=== PATIENT | male | born 1970 | race Two or more races ===

== ENCOUNTER 2017-08-26 06:40 | Emergency (ER) | payer BC ==
[2017-08-26] MEDS ORDERED: Aspirin 81 MG Tab.Chew PO ONE (06:42)
[2017-08-26] MEDS ORDERED: Sodium Chloride 0.9% 500 ML IV SCH (06:45)
[2017-08-26 07:18] LABS: CHLORIDE,CL 103 mmol/L (98-107); SODIUM,NA 139 mmol/L (136-148)
--- NOTE | 2017-08-26 07:24 | EDM.PDOC ---
ED HPI GENERAL MEDICAL PROBLEM - General Chief Complaint: Chest Pain Stated Complaint: CHEST PAIN Time Seen by Provider: 08/26/17 07:10 - History of Present Illness INITIAL COMMENTS - FREE TEXT/NARRATIVE: HISTORY AND PHYSICAL: History of present illness: Patient's 46-year-old male sensory concern of chest pain started 3 days prior after he sneezed he had discomfort that was worse with movement this lasts about a day he states it resolved and then returned it is worse with palpation and movement there is no clear associated shortness of breath palpitations or diaphoresis. Review of systems: As per history of present illness and below otherwise all systems reviewed and negative. Past medical history: As per history of present illness and as reviewed below otherwise noncontributory. Surgical history: As per history of present illness and as reviewed below otherwise noncontributory. Social history: No reported history of drug or alcohol abuse. Family history: As per history of present illness and as reviewed below otherwise noncontributory. Physical exam: HEENT: Atraumatic, normocephalic, pupils reactive, negative for conjunctival pallor or scleral icterus, mucous membranes moist, throat clear, neck supple, nontender, trachea midline. Lungs: Clear to auscultation, breath sounds equal bilaterally, chest nontender. Heart: S1S2, regular, negative for clicks, rubs, or JVD. Abdomen: Soft, nondistended, nontender. Negative for masses or hepatosplenomegaly. Negative for costovertebral tenderness. Pelvis: Stable nontender. Genitourinary: Deferred. Rectal: Deferred. Extremities: Atraumatic, negative for cords or calf pain. Neurovascular unremarkable. Neuro: Awake, alert, oriented. Cranial nerves II through XII unremarkable. Cerebellum unremarkable. Motor and sensory unremarkable throughout. Exam nonfocal. Diagnostics: CBC CMP troponin PT/INR chest x-ray EKG Therapeutics: IV O2 monitor patient taken aspirin prior to arrival Impression: #1 chest pain probable muscle skeletal etiology Definitive disposition and diagnosis as appropriate pending reevaluation and review of above. Left Anterior Chest Pain Score (Numeric/FACES): 4 - Related Data Allergies Allergy/AdvReac Type Severity Reaction Status Date / Time No Known Allergies Allergy Verified 08/26/17 06:43 Home Meds: Home Meds Aspirin 325 mg PO DAILY 08/26/17 [History] Carvedilol [Coreg CR] 40 mg PO DAILY 08/26/17 [History] Past Medical History HEENT History: Reports: None Cardiovascular History: Reports: Heart Murmur, High Cholesterol, Hypertension Respiratory History: Reports: None Gastrointestinal History: Reports: None Genitourinary History: Reports: None Musculoskeletal History: Reports: None Neurological History: Reports: None Psychiatric History: Reports: None Endocrine/Metabolic History: Reports: None Hematologic History: Reports: None Immunologic History: Reports: None Oncologic (Cancer) History: Reports: None Dermatologic History: Reports: None - Infectious Disease History Infectious Disease History: Reports: Chicken Pox - Past Surgical History Head Surgeries/Procedures: Reports: None HEENT Surgical History: Reports: None Respiratory Surgical History: Reports: None GI Surgical History: Reports: None Endocrine Surgical History: Reports: None Neurological Surgical History: Reports: None Musculoskeletal Surgical History: Reports: None Oncologic Surgical History: Reports: None Social & Family History - Family History Cardiac: Reports: MS Neurological: Reports: CVA - Tobacco Use Smoking Status *Q: Current Some Day Smoker Years of Tobacco use: 2 Packs/Tins Daily: 0.1 - Caffeine Use Caffeine Use: Reports: Coffee - Recreational Drug Use Recreational Drug Use: No ED ROS GENERAL - Review of Systems Review Of Systems: ROS reveals no pertinent complaints other than HPI. ED EXAM, GENERAL - Physical Exam Exam: See Below (See dictation) Course - Vital Signs Text/Narrative:: Patient's emergency department course has been unremarkable I discussed with an admission for observation patient declines will be given a referral for outpatient follow-up and agrees to such she'll return as needed as discussed Last Recorded V/S: Last Vital Signs Temp 37.1 C 08/26/17 06:43 Pulse 65 08/26/17 06:43 Resp 18 08/26/17 06:43 BP 166/98 H 08/26/17 06:43 Pulse Ox 100 08/26/17 06:43 - Orders/Labs/Meds Orders: Active Orders 24 hr Category Date Time Status EKG Documentation Completion [RC] STAT Care 08/26/17 06:42 Active Chest 1V Frontal [CR] Stat Exams 08/26/17 06:42 Taken COMPREHENSIVE METABOLIC PN,CMP [CHEM] Stat Lab 08/26/17 06:45 Received LIPASE [CHEM] Stat Lab 08/26/17 06:45 Received TROPONIN I [CHEM] Stat Lab 08/26/17 06:45 Received UA W/MICROSCOPIC [URIN] Stat Lab 08/26/17 06:42 Ordered Sodium Chloride 0.9% [Normal Saline] 500 ml Med 08/26/17 06:45 Active IV STAT Medication Orders Sodium Chloride (Normal Saline) 500 mls @ 999 mls/hr IV STAT NOE Last Admin: 08/26/17 06:50 Dose: 999 mls/hr Labs: Laboratory Tests 08/26/17 Range/Units 06:45 WBC 5.73 (4.0-11.0) K/uL RBC 4.84 (4.50-5.90) M/uL Hgb 14.5 (13.0-17.0) g/dL Hct 42.6 (38.0-50.0) % MCV 88.0 (80.0-98.0) fL MCH 30.0 (27.0-32.0) pg MCHC 34.0 (31.0-37.0) g/dL RDW Std Deviation 44.0 (28.0-62.0) fl RDW Coeff of Shaun 14 (11.0-15.0) % Plt Count 205 (150-400) K/uL MPV 10.10 (7.40-12.00) fL Neut % (Auto) 49.4 (48.0-80.0) % Lymph % (Auto) 38.4 (16.0-40.0) % [place] % (Auto) 8.4 (0.0-15.0) % Eos % (Auto) 3.5 (0.0-7.0) % Baso % (Auto) 0.3 (0.0-1.5) % Neut # (Auto) 2.8 (1.4-5.7) K/uL Lymph # (Auto) 2.2 (0.6-2.4) K/uL [place] # (Auto) 0.5 (0.0-0.8) K/uL Eos # (Auto) 0.2 (0.0-0.7) K/uL Baso # (Auto) 0.0 (0.0-0.1) K/uL Nucleated RBC % 0.0 /100WBC Nucleated RBCs # 0 K/uL Meds: Medications Generic Name Dose Route Start Last Admin Trade Name Freq PRN Reason Stop Dose Admin Sodium Chloride 500 mls @ 999 mls/hr 08/26/17 06:45 08/26/17 06:50 Normal Saline IV 999 mls/hr STAT NOE Administration Discontinued Medications Generic Name Dose Route Start Last Admin Trade Name Martha GOMEZ Reason Stop Dose Admin Aspirin 324 mg 08/26/17 06:42 08/26/17 06:50 Aspirin PO 08/26/17 06:43 324 mg ONETIME ONE Administration Departure - Departure Time of Disposition: 07:49 Disposition: Home, Self-Care 01 Condition: Good Clinical Impression: Atypical chest pain - Discharge Information Referrals: PCP,None [Primary Care Provider] - Additional Instructions: The following information is given to patients seen in the emergency department who are being discharged to home. This information is to outline your options for follow-up care. We provide all patients seen in our emergency department with a follow-up referral. The need for follow-up, as well as the timing and circumstances, are variable depending upon the specifics of your emergency department visit. If you don't have a primary care physician on staff, we will provide you with a referral. We always advise you to contact your personal physician following an emergency department visit to inform them of the circumstance of the visit and for follow-up with them and/or the need for any referrals to a consulting specialist. The emergency department will also refer you to a specialist when appropriate. This referral assures that you have the opportunity for followup care with a specialist. All of these measure are taken in an effort to provide you with optimal care, which includes your followup. Under all circumstances we always encourage you to contact your private physician who remains a resource for coordinating your care. When calling for followup care, please make the office aware that this follow-up is from your recent emergency room visit. If for any reason you are refused follow-up, please contact the [facility] emergency department at and asked to speak to the emergency department charge nurse. [facility] [address] [place] [id number] Follow-up primary medical doctor/clinic above call to schedule appointment return as needed as discussed[]
--- NOTE | 2017-08-26 14:25 | CR ---
EXAM DATE: 08/26/17 PATIENT'S AGE: 46 Patient: DAQUAN DANIELLE Facility: [place], [place] Site . Site : 1970 Study: XRay Chest [id number] 6:57:09 AM Ordering Physician: Doctor Adams Final Report: INDICATION: Chest pain. TECHNIQUE: AP portable upright chest. FINDINGS: Calcified granulomas right upper lobe. Clear left lung. Normal heart size. The included skeletal thorax is unremarkable. IMPRESSION: Benign granulomatous changes on the right. No acute cardiopulmonary process identified. Dictated by Raghav Alvarado MD @ Aug 26 2017 6:57AM (Electronic Signature) Report Signed by Proxy. BHAVANI
== END 2017-08-26 08:05 | disposition home or self-care (01) ==
LOC: MW.ED 06:40
DX: R07.89 Other chest pain (principal); E78.00 Pure hypercholesterolemia, unspecified; I10 Essential (primary) hypertension; F17.210 Nicotine dependence, cigarettes, uncomplicated; Z79.82 Long term (current) use of aspirin; Z79.899 Other long term (current) drug therapy
CPT/HCPCS: 71045; 80053; 81001; 83690; 84484; 85025; 96360; 99285; A9270; J7040